=== PATIENT | male | born 1985 | race American Indian/Alaskan Native ===

== ENCOUNTER 2022-01-05 16:11 | Emergency (ER) | payer MEDICARE ==
[2022-01-05] MEDS ORDERED: ONDANSETRON 4 MG ODT TAB PO ONE (20:31)
[2022-01-05] MEDS ORDERED: KETOROLAC 30 MG/1 ML INJ IM ONE (20:31)
[2022-01-05] MEDS ORDERED: HYDROcodone/ACETAMINOPHEN 5-325 MG TAB PO ONE (20:31)
[2022-01-05] MEDS ORDERED: SULFAMETHOXAZOLE/TRIMETHOPRIM 800/160MG DS TAB PO ONE (20:31)
[2022-01-05] MEDS ORDERED: CLINDAMYCIN 150 MG CAP PO ONE (20:31)
--- NOTE | 2022-01-05 21:43 | Emergency Department Report ---
ED Extremity Problem HPI - General Chief complaint: Extremity Problem,Nontraumatic Stated complaint: LEFT HAND SWOLLEN Source: patient Mode of arrival: Ambulatory Limitations: No Limitations - History of Present Illness Initial comments: Patient is a 37-year-old -[place] male with no past medical history presents to the ED with complaint of acute onset persistent painful swollen left palm due to a small puncture wound with thick purulent discharge for the last 2 weeks. Patient states that initially there is a small rash in the left palm of the left hand and he opened the rash but subsequently a small rash developed a small puncture wound which subsequently started draining thick purulent discharge, with swelling and pain. Patient states that the last 3 days, the pain and the swelling has worsened with increasing thick purulent discharge from the wound. Patient denies traumatic injury, numbness and tingling or weakness of left hand, dizziness, syncope, nausea and vomiting, fever, chills, headache, cough, fall or chest pain and shortness of breath. MD Complaint: extremity pain (left hand puncture wound, swelling and purulent discharge), extremity swelling (left hand) -: Sudden, week(s) (2) Location: left, upper extremity (left hand puncture wound and swelling with purulent discharge) History of Same: No -: Yes arthralgia Radiation: proximal Severity scale (0 -10): 8 Quality: aching, sharp Consistency: constant Improves with: nothing Worsens with: weight bearing, exertion, palpation Associated Symptoms: denies other symptoms, rash (Swollen, mild erythematous rash on left hand around small puncture wound with purulent discharge). denies: chest pain, shortness of breath, fever, myalgias, arthralgias - Related Data Previous Rx's Medication Instructions Recorded Last Taken Type Naproxen 500 mg PO BID PRN #30 tablet 02/28/20 Unknown Rx Clindamycin [Clindamycin CAP] 300 mg PO Q8H #30 cap 01/05/22 Unknown Rx Ibuprofen [Motrin] 800 mg PO Q8HR PRN #30 tablet 01/05/22 Unknown Rx Sulfamethoxazole/Trimethoprim 1 each PO Q12H #20 tab 01/05/22 Unknown Rx [Bactrim DS TAB] Allergies Allergy/AdvReac Type Severity Reaction Status Date / Time No Known Allergies Allergy Unverified 02/28/20 16:49 ED Review of Systems ROS: Stated complaint: LEFT HAND SWOLLEN Other details as noted in HPI Constitutional: denies: chills, fever Eyes: denies: eye pain, eye discharge, vision change ENT: denies: ear pain, throat pain Respiratory: denies: cough, shortness of breath, wheezing Cardiovascular: denies: chest pain, palpitations Endocrine: no symptoms reported Gastrointestinal: denies: abdominal pain, nausea, diarrhea Genitourinary: denies: urgency, dysuria Musculoskeletal: joint swelling (Swollen left palm and hand), arthralgia (Left palm and hand pain, swollen puncture wound with thick purulent discharge). denies: back pain Skin: rash (Mild erythematous maculopapular rash around the small puncture wound on left palm with thick purulent discharge), change in color. denies: lesions Neurological: denies: headache, weakness, paresthesias Psychiatric: denies: anxiety, depression Hematological/Lymphatic: denies: easy bleeding, easy bruising ED Past Medical Hx - Past Medical History Additional medical history: EPILEPSY - Surgical History Additional Surgical History: TONSILS - Social History Smoking Status: Current Every Day Smoker Substance Use Type: Marijuana - Medications Home Medications: Home Medications Medication Instructions Recorded Confirmed Last Taken Type Naproxen 500 mg PO BID PRN #30 tablet 02/28/20 Unknown Rx Clindamycin [Clindamycin CAP] 300 mg PO Q8H #30 cap 01/05/22 Unknown Rx Ibuprofen [Motrin] 800 mg PO Q8HR PRN #30 tablet 01/05/22 Unknown Rx Sulfamethoxazole/Trimethoprim 1 each PO Q12H #20 tab 01/05/22 Unknown Rx [Bactrim DS TAB] ED Physical Exam - General Limitations: No Limitations General appearance: alert, in no apparent distress - Head Head exam: Present: atraumatic, normocephalic, normal inspection - Eye Eye exam: Present: normal appearance, PERRL, EOMI Pupils: Present: normal accommodation - ENT ENT exam: Present: normal exam, normal orophraynx, mucous membranes moist, TM's normal bilaterally, normal external ear exam - Neck Neck exam: Present: normal inspection, full ROM - Respiratory Respiratory exam: Present: normal lung sounds bilaterally. Absent: respiratory distress, wheezes, rales, stridor, chest wall tenderness, accessory muscle use, decreased breath sounds, prolonged expiratory - Cardiovascular Cardiovascular Exam: Present: regular rate, normal rhythm, normal heart sounds. Absent: systolic murmur, diastolic murmur, rubs, gallop - GI/Abdominal GI/Abdominal exam: Present: soft, normal bowel sounds. Absent: tenderness, guarding, rebound, hyperactive bowel sounds, hypoactive bowel sounds, or ganomegaly, mass - Extremities Exam Extremities exam: Present: normal inspection, full ROM, tenderness (Palpable left hand and thumb tenderness with swelling due to a small puncture wound and mild erythematous rash with thick purulent discharge), normal capillary refill, joint swelling. Absent: pedal edema, calf tenderness - Back Exam Back exam: Present: normal inspection, full ROM. Absent: tenderness, CVA tenderness (R), CVA tenderness (L), muscle spasm, paraspinal tenderness, vertebral tenderness - Neurological Exam Neurological exam: Present: alert, oriented X3, CN II-XII intact, normal gait, reflexes normal - Psychiatric Psychiatric exam: Present: normal affect, normal mood - Skin Skin exam: Present: warm, dry, intact, rash (Mild erythematous maculopapular rash around a small puncture wound on the left palm of the left hand with purulent discharge), erythema. Absent: normal color, urticaria, vesicles, petechiae ED Course Vital Signs 01/05/22 16:59 Temperature 98.8 F Pulse Rate 76 Respiratory 18 Rate Blood Pressure 143/94 [Right] O2 Sat by Pulse 99 Oximetry ED Medical Decision Making - Medical Decision Making This is a 37-year-old -[place] male with no past medical history presents to the ED with complaint of acute onset persistent painful swollen left palm due to a small puncture wound with thick purulent discharge for the last 2 weeks. Patient states that initially there is a small rash in the left palm of the left hand and he opened the rash but subsequently a small rash developed a small puncture wound which subsequently started draining thick purulent discharge, with swelling and pain. Patient states that the last 3 days, the pain and the swelling has worsened with increasing thick purulent discharge from the wound. In the ED, patient is alert and oriented x3 and is not in any distress. Patient was treated for pain in the ED and also given initial oral antibiotics. Patient was discharged home on medications for pain and oral antibiotics and advised to follow-up with his primary care physician in 7 to 10 days for reevaluation or return to the ED immediately if symptoms get worse. - Differential Diagnosis Puncture wound; cellulitis; cutaneous abscess; Critical care attestation.: If time is entered above; I have spent that time in minutes in the direct care of this critically ill patient, excluding procedure time. ED Disposition Clinical Impression: Cellulitis of left hand Puncture wound of left hand with infection Qualifiers: Encounter type: initial encounter Qualified Code(s): S61.432A - Puncture wound without foreign body of left hand, initial encounter; L08.9 - Local infection of the skin and subcutaneous tissue, unspecified Disposition: 01 HOME / SELF CARE / HOMELESS Is pt being admited?: No Does the pt Need Aspirin: No Condition: Stable Instructions: Cellulitis, Adult, [id number], Puncture Wound, [id number] Additional Instructions: Take medication with food, drink plenty of fluids, follow-up with your primary care physician in 7 to 10 days for reevaluation. Return to the ED immediately if symptoms get worse. Prescriptions: Sulfamethoxazole/Trimethoprim [Bactrim DS TAB] 1 each PO Q12H #20 tab Clindamycin [Clindamycin CAP] 300 mg PO Q8H #30 cap Ibuprofen [Motrin] 800 mg PO Q8HR PRN #30 tablet PRN Reason: Pain , Severe (7-10) Referrals: CASEY ALAS MD [Primary Care Provider] - 3-5 Days Time of Disposition: 21:46 Print Language: EGYPTIAN
[2022-01-05 22:49] VITALS: BP 124/86
== END 2022-01-05 22:51 | disposition home or self-care (01) ==
LOC: ED 16:11
DX: S61.432A Puncture wound without foreign body of left hand, initial encounter (principal); L03.114 Cellulitis of left upper limb; X58.XXXA Exposure to other specified factors, initial encounter; Y93.89 Activity, other specified; Y92.89 Other specified places as the place of occurrence of the external cause; Y99.8 Other external cause status
CPT/HCPCS: 96372; 99282; J1885; J3490; Q0162